=== PATIENT | female | born 1990 | race Two or more races ===

== ENCOUNTER 2017-06-16 08:14 | Emergency (ER) | payer SELFPAY ==
[2017-06-16 08:20] VITALS: TEMP 98.2; BMI 18.3
[2017-06-16] MEDS ORDERED: ONDANSETRON 4 MG/2 ML VIAL IVPUSH ONE (08:44)
[2017-06-16] MEDS ORDERED: SODIUM CHLORIDE 1,000 ML IV STA (08:44)
--- NOTE | 2017-06-16 08:46 | PDOC ---
History of Present Illness - General Chief Complaint: Pain, Acute Stated Complaint: ABD PAIN, HEADACHES Time Seen by Provider: 06/16/17 08:22 History Source: Patient Exam Limitations: No Limitations - History of Present Illness Initial Comments: 06/16/17 08:44 26-year-old female presents the emergency room with complaints of generalized throbbing sensation over the past 2 weeks to her head without visual changes, neck pain or fever. Patient also complaining of nausea and mild dizziness along with decreased appetite secondary to nausea. Patient also states her menses is 10 days late and thinks she might be . Patient states breast tenderness but denies abdominal pain, dysuria, abdominal distention, back pain, vaginal discharge or vaginal bleeding. Timing/Duration: changing over time Severity: mild Associated Symptoms: reports: headaches, nausea/vomiting. denies: fever/chills , weakness Past History - Travel Traveled outside of the country in the last 30 days: Yes - Past Medical History Allergies/Adverse Reactions: Allergies Allergy/AdvReac Type Severity Reaction Status Date / Time amoxicillin Allergy Intermediate Hives Verified 06/16/17 08:16 Home Medications: Ambulatory Orders No Home Medications 0 dose .ROUTE UTDICT 03/10/12 Amox-Tr/K Cl [Augmentin - 875Mg Tablet] 1 tab PO BID #20 tablet 06/10/15 Ibuprofen [Motrin -] 600 mg PO TID PRN #21 tablet 06/10/15 Asthma: No Cancer: No Cardiac Disorders: No COPD: No Diabetes: No HTN: No Seizures: No Thyroid Disease: No Other medical history: DENIES. - Surgical History Appendectomy: Yes (2009) - Immunization History Immunization Up to Date: Yes - Suicide/Smoking/Psychosocial Hx Smoking Status: No Smoking History: Former smoker Have you smoked in the past 12 months: Yes Number of Cigarettes Smoked Daily: 0 Cigars Per Day: 0 Information on smoking cessation initiated: No Hx Alcohol Use: No Drug/Substance Use Hx: No Substance Use Type: None Hx Substance Use Treatment: No Patient Lives Alone: No Lives with/in: spouse/SO Review of Systems - Review of Systems Able to Perform ROS?: Yes Constitutional: No: Symptoms Reported Respiratory: No: Symptoms reported Cardiac (ROS): No: Symptoms Reported ABD/GI: Yes: Nausea, Poor Appetite. No: Abdominal cramping Musculoskeletal: No: Symptoms Reported Integumentary: No: Symptoms Reported Neurological: Yes: Headache, Dizziness *Physical Exam - Vital Signs Last Vital Signs Temp Pulse Resp BP Pulse Ox 98.2 F 76 19 124/74 100 06/16/17 08:16 06/16/17 08:16 06/16/17 08:16 06/16/17 08:16 06/16/17 08:16 - Physical Exam General Appearance: Yes: Nourished, Appropriately Dressed. No: Apparent Distress HEENT: positive: EOMI, LUIS, TMs Normal, Pharynx Normal. negative: Pale Conjunctivae Neck: positive: Normal Thyroid, Supple Respiratory/Chest: positive: Lungs Clear, Normal Breath Sounds. negative: Respiratory Distress, Accessory Muscle Use Cardiovascular: positive: Regular Rhythm, Regular Rate. negative: Murmur Gastrointestinal/Abdominal: positive: Soft. negative: Tenderness Extremity: positive: Normal Capillary Refill. negative: Pedal Edema Integumentary: positive: Normal Color, Warm, Moist Neurologic: positive: Motor Strength 5/5 (ambulatory). negative: Normal Mood/ Affect ED Treatment Course - LABORATORY CBC & Chemistry Diagram: 06/16/17 09:20 06/16/17 09:20 Medical Decision Making - Medical Decision Making 06/16/17 08:49 Pt with c/o headache, nausea, dizziness, and late menses. Pt on exam had no abd tenderness and VSS. Pt ordered for ua, uoreg to r/o CBC,Comp, lipase, mag, zofran, and ivf. 06/16/17 09:54 Laboratory Tests 06/16/17 06/16/17 09:20 09:20 WBC 8.9 D Hgb 14.2 Hct 42.0 Neutrophils % 69.8 Urine Ketones 1+ H Urine Nitrite Negative Urine Urobilinogen 2.0 H Urine HCG, Qual Positive Pt states feeling better. Will await chemistry. 06/16/17 10:04 Laboratory Tests 06/16/17 09:20 Sodium 137 Potassium 4.0 Chloride 105 Carbon Dioxide 23 Anion Gap 9 BUN 13 D Creatinine 0.8 Random Glucose 71 L D Calcium 9.0 Magnesium 2.3 Total Bilirubin 0.8 AST 15 D ALT 19 Alkaline Phosphatase 47 Total Protein 8.6 H Albumin 4.4 Lipase 123 Patient will be given 2 glasses of orange juice and yasmani crackers. Patient will be discharged home with Zofran and recommendations to follow-up with [facility]. *DC/Admit/Observation/Transfer Diagnosis at time of Disposition: Vomiting or nausea of , Encounter for confirmation of test result with physical examination Headache Qualifiers: Headache type: unspecified Headache chronicity pattern: acute headache Intractability: not intractable Qualified Code(s): R51 - Headache - Discharge Dispostion Disposition: HOME Condition at time of disposition: Improved - Referrals - Patient Instructions Printed Discharge Instructions: Managing Symptoms of , Junie May Improve Nausea Symptoms in Additional Instructions: Please follow-up at [facility] and may take Zofran as needed for nausea. If you develop symptoms of abdominal pain, vaginal bleeding, uncontrolled nausea please return to the ED. - Post Discharge Activity
[2017-06-16] MEDS ORDERED: ONDANSETRON 4 MG/2 ML VIAL ONE (08:50)
[2017-06-16 09:30] LABS: BASOPHIL 0.8 % (0-2.0); EOSINOPHIL 0.6 % (0-4.5); MCH 30.4 pg (25.7-33.7); MCHC 33.8 g/dl (32.0-36.0); MEAN CELL VOLUME 89.9 fl (80-96); MEAN PLT VOLUME 9.3 fl (7.5-11.1); NEUTROPHILS 69.8 % (42.8-82.8); PLATELET COUNT 217 K/MM3 (134-434); RDW 13.4 % (11.6-15.6); WHITE BLOOD COUNT 8.9 K/mm3 (4.0-10.0)
[2017-06-16 09:31] LABS: URINE APPEARANCE SLCLOUDY; URINE BILIRUBIN NEGATIVE (NEGATIVE); URINE BLOOD NEGATIVE (NEGATIVE); URINE COLOR YELLOW; URINE GLUCOSE (UA) NEGATIVE (NEGATIVE); URINE KETONE 1+ (NEGATIVE); URINE LEUK ESTERASE TRACE (NEGATIVE); URINE NITRITE NEGATIVE (NEGATIVE); URINE PROTEIN NEGATIVE (NEGATIVE)
[2017-06-16] MEDS ORDERED: ACETAMINOPHEN 500 MG TABLET (FP) PO ONE (09:43)
[2017-06-16 09:52] LABS: ALBUMIN 4.4 g/dl (3.4-5.0); ALK PHOS 47 U/L (45-117); ANION GAP 9 (8-16); BILIRUBIN,TOTAL 0.8 mg/dL (0.2-1.0); CO2 23 mmol/L (21-32); CREATININE 0.8 mg/dL (0.55-1.02); GLUCOSE,RANDOM 71 mg/dL (74-106); MAGNESIUM 2.3 mg/dL (1.8-2.4); SGOT/AST 15 U/L (15-37); SGPT/ALT 19 U/L (12-78); TOT PROT 8.6 g/dl (6.4-8.2)
[2017-06-16] MEDS ORDERED: ACETAMINOPHEN 325 MG TABLET (FP) ONE (10:04)
[2017-06-16 10:22] LABS: URINE BACTERIA RARE /hpf (NONE SEEN); URINE MUCUS MANY; URINE RBC 2 /hpf (0-3); URINE WBC 2 /hpf (3-5)
[2017-06-16 10:31] VITALS: BP 110/78; PULSE 86
[2017-06-16 18:38] LABS: URINE LEUK ESTERASE NEGATIVE (NEGATIVE)
== END 2017-06-16 10:30 | disposition home or self-care (01) ==
LOC: JER 08:14
PROC: 3E033GC Introduction of Other Therapeutic Substance into Peripheral Vein, Percutaneous Approach (ICD-10-PCS; principal; 2017-06-16)
PROC: 3E0337Z Introduction of Electrolytic and Water Balance Substance into Peripheral Vein, Percutaneous Approach (ICD-10-PCS; 2017-06-16)
DX: O26.891 Other specified pregnancy related conditions, first trimester (principal); Z3A.00 Weeks of gestation of pregnancy not specified; R11.2 Nausea with vomiting, unspecified; Z32.01 Encounter for pregnancy test, result positive; R51 Headache
CPT/HCPCS: 36415; 80053; 81003; 81015; 83690; 83735; 84703; 85025; 99282-25

== ENCOUNTER 2023-07-06 02:47 | Emergency (ER) | payer OTHER, BC ==
[2023-07-06 02:55] VITALS: BP 98/58; PULSE 74; RESP 20; TEMP 98.4; BMI 19.2
[2023-07-06] MEDS ORDERED: IBUPROFEN 400 MG TABLET (FP) PO ONE ×2 (03:39→03:57)
[2023-07-06] MEDS ORDERED: DIPHTH,PERTUSS(ACELL),TET 0.5 ML DISP.SYRIN IM ONE ×2 (04:45→05:12)
[2023-07-06] MEDS ORDERED: SODIUM CHLORIDE 0.9% 500 ML INFUS.BAG IV ONE (04:57)
[2023-07-06 06:11] LABS: BASO % 0.6 % (0-2.0); EOS % 0.6 % (0-4.5); HEMATOCRIT 35.7 % (32.4-45.2); HEMOGLOBIN 11.5 GM/dL (10.7-15.3); LYMPH % 15.5 % (8-40); MCH 27.3 pg (25.7-33.7); MCHC 32.2 g/dl (32.0-36.0); MEAN CELL VOLUME 84.7 fl (80-96); MEAN PLT VOLUME 9.8 fl (7.5-11.1); MONO % 5.5 % (3.8-10.2); NEUT % 77.8 % (42.8-82.8); PLATELET COUNT 221 10^3/uL (134-434); RBC 4.21 M/mm3 (3.60-5.2); RDW 14.9 % (11.6-15.6); WHITE BLOOD COUNT 11.8 K/mm3 (4.0-10.0)
[2023-07-06 06:30] LABS: CHLORIDE 109 mmol/L (98-107); POTASSIUM 3.5 mmol/L (3.5-5.1); SODIUM 142 mmol/L (136-145)
[2023-07-06 06:31] LABS: CALCIUM 9.3 mg/dL (8.5-10.1)
[2023-07-06 06:32] LABS: ALBUMIN 3.7 g/dl (3.4-5.0); ANION GAP 7 mmol/L (4-13); BLOOD UREA NITROGEN 9.6 mg/dL (7-18); CO2 25 mmol/L (21-32); GLUCOSE,RANDOM 90 mg/dL (74-106)
[2023-07-06 06:35] LABS: CREATININE 0.7 mg/dL (0.55-1.3); SGOT/AST 15 U/L (15-37); SGPT/ALT 19 U/L (13-61)
[2023-07-06 06:37] LABS: TOT PROT 7.4 g/dl (6.4-8.2)
[2023-07-06 06:38] LABS: ALK PHOS 52 U/L (45-117)
[2023-07-06 08:05] LABS: ERYTHROCYTE SEDIMENTATION RATE 13 mm/hr (0-20)
[2023-07-06 08:22] LABS: BILIRUBIN,TOTAL 0.4 mg/dL (0.2-1)
== END 2023-07-06 06:41 | disposition home or self-care (01) ==
LOC: JER 02:47
PROC: 3E0234Z Introduction of Serum, Toxoid and Vaccine into Muscle, Percutaneous Approach (ICD-10-PCS; principal; 2023-07-06)
DX: S60.511A Abrasion of right hand, initial encounter (principal); M79.641 Pain in right hand; M79.642 Pain in left hand; M25.511 Pain in right shoulder; L08.89 Other specified local infections of the skin and subcutaneous tissue; V89.2XXA Person injured in unspecified motor-vehicle accident, traffic, initial encounter; Y93.I9 Activity, other involving external motion
CPT/HCPCS: 36415; 73110-TC-RT-FY; 73130-TC-LT-FY; 73130-TC-RT-FY; 80053; 83605; 84703; 85025; 85651; 86140; 90715; 99284-25